=== PATIENT | female | born 1970 | race Caucasian/White ===

== ENCOUNTER 2022-04-10 16:28 | Outpatient (CLI) | payer OTHER, SELFPAY ==
[2022-04-10 14:07] LABS: Chloride* 98 mmol/L (96-114)
[2022-04-10 14:08] LABS: Potassium* 4.4 mmol/L (3.6-5.1); Sodium* 135 mmol/L (135-149)
[2022-04-10 14:10] LABS: Bilirubin Total* 0.6 mg/dL (0.1-1.5); Blood Urea Nitrogen* 14 mg/dL (7-30); Carbon Dioxide* 28 mmol/L (20-32); Cholesterol* 116 mg/dL (90-199); Creatinine* 0.6 mg/dL (0.5-1.5); Estimated Glomerular Filt Rate 109 ml/min; Total Protein* 6.3 g/dL (6.0-8.3)
[2022-04-10 14:11] LABS: Alanine Aminotransferase* 30 U/L (4-35); Alkaline Phosphatase* 80 U/L (40-150); Aspartate Amino Transferase* 30 U/L (12-35); Glucose* 223 mg/dL (60-115); HDL Cholesterol* 52 mg/dL (>=50); LDL Cholesterol Calculated 28 mg/dL (<100); Triglycerides* 181 mg/dL (40-149)
[2022-04-10 14:24] LABS: Creatinine Urine 304.6 mg/dL
[2022-04-10 14:27] LABS: Microalbumin Creatinine Ratio 10 mg/g (0-30); Microalbumin Urine 4 mg/dL
== END 2022-04-10 16:29 | disposition home or self-care (01) ==
PROVIDERS: PCP Physician Assistant Medical; Visit Provider Physician Assistant Medical
DX: Z01.419 Encounter for gynecological examination (general) (routine) without abnormal findings (principal); E78.5 Hyperlipidemia, unspecified; I10 Essential (primary) hypertension; E11.9 Type 2 diabetes mellitus without complications
CPT/HCPCS: 80053; 80061; 82043; 82570

== ENCOUNTER 2022-05-04 11:25 | Outpatient (CLI) | payer OTHER, SELFPAY | END 2022-05-04 11:26 | disposition home or self-care (01) | LOC: LKVREF 05-08 10:57 | PROVIDERS: PCP Physician Assistant Medical; Visit Provider Emergency Medicine | DX: N39.0 Urinary tract infection, site not specified (principal) | CPT/HCPCS: 87086 ==

== ENCOUNTER 2022-06-29 07:57 | Outpatient (CLI) | payer OTHER, SELFPAY ==
--- NOTE | 2022-06-29 08:15 | MR_ITS ---
[address] [address] Phone:?[phone] Fax:?[phone] Referring Physician Information: Laura Pineda [address] [facility] [address] Phone:?[phone] Fax:?[phone] Patient:?Teresa Rosas D.O.B:?1970 Sex:?Female Phone:?[phone] [facility] MRN:?[id number] Exam Date:?06/29/2022 ? EXAM: MRI OF THE LEFT KNEE CLINICAL INFORMATION: The patient is a 51-year-old with left knee pain. Evaluate iliotibial band. Evaluate for bursitis or inflammatory change. PRIOR SURGERY: The patient has a history of prior surgery to the region. COMPARISON STUDIES: There are no prior studies available for comparison. TECHNICAL INFORMATION: Imaging was performed on a high-field, 1.5 Senia MR scanner. Axial proton-density and fat-suppressed T2 imaging of the left knee was performed in addition to coronal proton-density and coronal STIR imaging. Sagittal proton-density and fat-suppressed proton-density imaging was also produced. FINDINGS: Articular/Extraarticular collections: Effusion: Mild. Popliteal cyst: Small, seen on sagittal series 6 image 9. Loose bodies within the popliteal cyst are present on sagittal series 5 image 9. Loose bodies: Small loose bodies within the joint space are also thought to be present. Subcutaneous and extraarticular soft tissues: Nonspecific subcutaneous soft tissue edema and/or hemorrhage can be seen along the anterior, anteromedial, and anterolateral aspects of the left knee. Osseous structures: Tricompartmental osteoarthritic changes of the left knee are present, most severely involving the medial and patellofemoral joint compartments. Prominent spurring along the articular margins can be seen with areas of cortical irregularity and subcortical edema along the articular surfaces of the medial femoral condyle and medial tibial plateau on sagittal series 6 image 9. The findings are consistent with the chondromalacia and chondral loss described below. No definite evidence for additional bony injury is seen. There is no evidence for well-defined fracture, stress injury, or destructive bony lesion. Ligamentous structures: ACL: There is no normal-appearing, low signal ACL within the intercondylar notch. The findings are in keeping with a chronic severe sprain or rupture of the ACL with subsequent resorption of ACL fibers. PCL: Chronic residual changes of a prior incomplete PCL sprain can be seen with thickening of the mid and distal fibers. No evidence for transverse disruption of the PCL is noted. MCL: Chronic residual changes of a prior incomplete sprain involving the proximal and mid portions of the MCL can be seen on coronal series 7 image 17. No evidence for acute injury or transverse disruption of MCL fibers can be seen. LCL: Intact and normal in appearance. Posterolateral corner: Intact and normal in appearance. There is chronic appearing thickening of the iliotibial band seen on coronal series 8 image 12, however no evidence for well- defined tearing is seen. No definite MR findings are seen to suggest iliotibial band friction syndrome. Posteromedial corner: Within normal limits. Extensor mechanism/Patellar retinacular structures: Patellar tendon: Intact, without tendinopathy. Quadriceps tendon: Intact, without tendinopathy. Retinacula: The medial and lateral retinacula are intact. The medial patellofemoral ligament is intact. Medial compartment: Medial meniscus: The medial meniscus is abnormal in appearance. There is broad- based, complex tearing and degeneration of the middle and posterior portions of the medial meniscus seen on coronal series 7 image 17 and on sagittal series 6 image 10. The broad-based area of tearing and degeneration measures approximately 23 mm in mediolateral dimension and 25 mm in anteroposterior dimension. The anterior horn appears intact. No definite parameniscal cyst formation is seen. Medial femoral condyle: Full-thickness and near full-thickness chondral loss can be seen along the central and posterior articular surfaces of the medial femoral condyle. Medial tibial plateau: Full-thickness and near full-thickness chondral loss can be seen along the weightbearing surfaces of the medial tibial plateau. Lateral compartment: Lateral meniscus: Degeneration and irregularity of the lateral meniscus can be seen without definite areas of more well-defined tearing. No evidence for parameniscal cyst formation is seen. Lateral femoral condyle: Grade II chondromalacia can be seen along the weightbearing surfaces of the lateral femoral condyle. Lateral tibial plateau: Grade II chondromalacia can be seen along the posterior articular surfaces of the lateral tibial plateau. Patellofemoral compartment: Patella: Full-thickness and near full-thickness chondral loss can be seen along the medial patellar facet with grade II to III chondromalacia of the patellar apex and lateral facet. Trochlea: Full-thickness and near full-thickness chondral loss can be seen along the central and lateral articular surfaces of the femoral trochlea. Neurovascular: No definite neurovascular abnormalities are seen. CONCLUSION: 1. Osteoarthritic changes of the left knee, most severely involving the medial and patellofemoral joint compartments. 2. Broad-based tearing of the middle and posterior portions of the medial meniscus. 3. Degeneration of the lateral meniscus without well-defined tearing. 4. 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 5. Chronic incomplete sprain injuries of the PCL and MCL. 6. Knee joint effusion and small popliteal cyst. 7. Chronic appearing thickening of the iliotibial band without definite MR signs of iliotibial band friction syndrome. [facility] Electronically signed on 06/29/2022 12:56:00 PM by Georgi Dorantes M.D.
== END 2022-06-29 07:58 | disposition home or self-care (01) ==
LOC: MRI 08:00
PROVIDERS: PCP Physician Assistant Medical; Visit Provider Physician Assistant Medical
DX: M25.562 Pain in left knee (principal); M17.12 Unilateral primary osteoarthritis, left knee; S83.282A Other tear of lateral meniscus, current injury, left knee, initial encounter; S83.512A Sprain of anterior cruciate ligament of left knee, initial encounter; S83.522A Sprain of posterior cruciate ligament of left knee, initial encounter; M25.462 Effusion, left knee; M71.22 Synovial cyst of popliteal space [Baker], left knee
CPT/HCPCS: 73721

== ENCOUNTER 2022-08-14 10:05 | Outpatient (CLI) | payer OTHER, SELFPAY ==
[2022-08-14 14:36] LABS: Vitamin B12* 790 pg/mL (243-894)
== END 2022-08-14 10:06 | disposition home or self-care (01) ==
PROVIDERS: PCP Physician Assistant Medical; Visit Provider Physician Assistant Medical
DX: E11.9 Type 2 diabetes mellitus without complications (principal)
CPT/HCPCS: 82607

== ENCOUNTER 2022-10-10 12:49 | Outpatient (CLI) | payer OTHER, SELFPAY ==
--- NOTE | 2022-10-10 13:00 | CRLHL7_ITS ---
For Patients: As a result of the Cures Act, medical imaging exams and procedure reports are released immediately into your electronic medical record. You may view this report before your referring provider. If you have questions, please contact your health care provider. BILATERAL SCREENING MAMMOGRAM WITH COMPUTER-AIDED DETECTION AND TOMOSYNTHESIS TECHNIQUE: CC and MLO views were obtained. These mammographic images have been obtained using full-field digital technique. These mammographic images were interpreted with the benefit of computer-aided detection. Breast tomosynthesis was used in this interpretation. COMPARISON FILM: 10/07/21, 09/17/20, 08/26/19. FINDINGS: The breasts are almost entirely fatty. IMPRESSION: There is no radiographic evidence for malignancy. ASSESSMENT: BI-RADS Category 1: Negative RECOMMENDATION: Routine screening mammogram in 1 year. A lay language report of this examination will be provided to the patient. SANG DIAZ M.D. Diagnostic Radiologist [email or web address] HAYDEE/donna Transcribed 10/11/2022, 3:[address]/Dictated by: Sang Diaz MD @ 10/11/2022 9:17:00 AM (Electronically Signed)
== END 2022-10-10 12:50 | disposition home or self-care (01) ==
LOC: MAMMO 12:49
PROVIDERS: PCP Physician Assistant Medical; Visit Provider Physician Assistant Medical
DX: Z12.31 Encounter for screening mammogram for malignant neoplasm of breast (principal)
CPT/HCPCS: 77063; 77067

== ENCOUNTER 2023-04-23 07:30 | Outpatient (REF) | payer SELFPAY | END 2023-04-23 07:31 | disposition home or self-care (01) | LOC: NFLDREF 07:30 | PROVIDERS: PCP Physician Assistant Medical; Referring Provider Physician Assistant Medical; Visit Provider Physician Assistant Medical | DX: Z00.00 Encounter for general adult medical examination without abnormal findings (principal); E11.9 Type 2 diabetes mellitus without complications; E78.5 Hyperlipidemia, unspecified; I10 Essential (primary) hypertension; N39.0 Urinary tract infection, site not specified | CPT/HCPCS: 80053; 80061; 82043; 82570; 84443 ==

== ENCOUNTER 2023-12-06 15:05 | Outpatient (CLI) | payer OTHER, SELFPAY ==
--- NOTE | 2023-12-06 15:20 | CRLHL7_ITS ---
For Patients: As a result of the Century Cures Act, medical imaging exams and procedure reports are released immediately into your electronic medical record. You may view this report before your referring provider. If you have questions, please contact your health care provider. BILATERAL SCREENING MAMMOGRAM WITH COMPUTER-AIDED DETECTION AND TOMOSYNTHESIS TECHNIQUE: CC and MLO views were obtained. These mammographic images have been obtained using full-field digital technique. These mammographic images were interpreted with the benefit of computer-aided detection. Breast Tomosynthesis was used in this interpretation. COMPARISON FILM: 10/10/22, 10/07/21, 09/17/20. FINDINGS: There are scattered areas of fibroglandular density. IMPRESSION: There is no radiographic evidence for malignancy. ASSESSMENT: BI-RADS Category 1: Negative RECOMMENDATION: Routine screening mammogram in 1 year. A lay language report of this examination will be provided to the patient. Sang Barney M.D. Diagnostic Radiologist [email or web address] SP/Dictated by: Sang Barney MD @ 12/10/2023 12:14:00 PM (Electronically Signed)
== END 2023-12-06 15:06 | disposition home or self-care (01) ==
LOC: MAMMO 15:06
PROVIDERS: PCP Physician Assistant Medical; Visit Provider Physician Assistant Medical
DX: Z12.31 Encounter for screening mammogram for malignant neoplasm of breast (principal)
CPT/HCPCS: 77063; 77067

== ENCOUNTER 2024-05-01 07:33 | Outpatient (CLI) | payer OTHER, SELFPAY | END 2024-05-01 07:34 | disposition home or self-care (01) | LOC: NFLDREF 05-05 11:43 | PROVIDERS: PCP Physician Assistant Medical; Referring Provider Physician Assistant Medical; Visit Provider Physician Assistant Medical | DX: E11.65 Type 2 diabetes mellitus with hyperglycemia (principal); I10 Essential (primary) hypertension; Z13.220 Encounter for screening for lipoid disorders; Z13.21 Encounter for screening for nutritional disorder | CPT/HCPCS: 80053; 80061; 82043; 82570; 82607; 84443 ==

== ENCOUNTER 2024-05-12 08:58 | Outpatient (CLI) | payer OTHER, SELFPAY ==
[2024-05-14 13:35] LABS: HPV Source Cervix; HPV, High Risk by TMA Not Detected
== END 2024-05-12 08:59 | disposition home or self-care (01) ==
PROVIDERS: PCP Physician Assistant Medical; Visit Provider Physician Assistant Medical
DX: Z01.419 Encounter for gynecological examination (general) (routine) without abnormal findings (principal); Z12.4 Encounter for screening for malignant neoplasm of cervix; Z11.51 Encounter for screening for human papillomavirus (HPV); Z11.3 Encounter for screening for infections with a predominantly sexual mode of transmission
CPT/HCPCS: 87624; 87625; 88141; 88142

== ENCOUNTER 2025-01-15 13:35 | Outpatient (CLI) | payer OTHER, SELFPAY ==
--- NOTE | 2025-01-15 14:00 | CRLHL7_ITS ---
For Patients: As a result of the Century Cures Act, medical imaging exams and procedure reports are released immediately into your electronic medical record. You may view this report before your referring provider. If you have questions, please contact your health care provider. INDICATION: BILATERAL SCREENING MAMMOGRAM, ASYMPTOMATIC 54 Y/O FEMALE COMPARISON: 12/06/2023, 10/10/2021, 10/07/2021 TECHNIQUE: Digital mammogram in CC and MLO projections including computer-aided detection (CAD) and tomosynthesis. BREAST COMPOSITION: There are scattered areas of fibroglandular density. FINDINGS: No suspicious findings. ASSESSMENT: BI-RADS 1 Negative RECOMMENDATION: Annual screening mammogram. A lay language report of this examination will be provided to the patient. Dictated by: Carolee Rosado MD @ 01/17/2025 14:30:03 (Electronically Signed)
== END 2025-01-15 13:36 | disposition home or self-care (01) ==
LOC: MAMMO 13:36
PROVIDERS: PCP Physician Assistant Medical; Visit Provider Physician Assistant Medical
DX: Z12.31 Encounter for screening mammogram for malignant neoplasm of breast (principal)
CPT/HCPCS: 77063; 77067